=== PATIENT | female | born 1940 | race Caucasian/White ===

== ENCOUNTER 2016-03-16 07:00 | Day surgery (SDC) | payer MEDICARE ==
[~2016-03-16] VITALS: Ht 175.3 cm; Wt 66.7 kg
[~2016-03-16 07:00] MED LIST: 0.9% Sodium Chloride 1,000 ML IV SCH; ACYC400T2 PO; ASP81TEC PO; CHOL200047 PO; LEVO100T97 PO; METO25TA6 PO; METO25TA99 PO; PRE625 PO; SIMV20TA4 PO; Sodium Chloride LOK Flush 10 mL Syringe IV PRN; fentaNYL-PF 50 mCg/mL 2 mL Inj IVPUSH PRN
[2016-03-16] MEDS ORDERED: ASPI-973 PO (07:38)
[2016-03-16] MEDS ORDERED: LEVO75TA4 PO (07:38)
[2016-03-16 07:39] VITALS: BP 145/105; PULSE 106; RESP 16; O2SAT 97
[2016-03-16 08:20] VITALS: BP 110/57; PULSE 76; RESP 14; O2SAT 98
[2016-03-16 08:31] VITALS: BP 97/51; PULSE 84; RESP 12; O2SAT 98
[2016-03-16 08:34] VITALS: BP 137/74; PULSE 86; RESP 14; O2SAT 96
--- NOTE | 2016-03-16 09:26 | ENDO ---
[address] [address] ENDOSCOPY PROCEDURE PATIENT: KATERIN [place] : 1940 MR#: [id number] ADMIT: 03/16/2016 JOB ID: [id number] DATE OF SERVICE: 03/16/2016 PROCEDURE PERFORMED: Colonoscopy. INDICATIONS: Screening. ASA CLASSIFICATION: The patient's ASA classification is II. MALLAMPATI SCORE: Mallampati score was 2. MEDICATIONS: 1. Versed 6 mg. 2. Fentanyl 125 mcg. INSTRUMENT USED: PCF-H180AL. PREPARATION QUALITY: Good. PROCEDURE DETAILS: After informed consent was obtained, the patient was brought into the GI suite, where she was placed on oxygen via nasal cannula and monitored with continuous pulse oximeter, telemetry, and blood pressure monitoring. A time-out was performed. Then, she was placed in the left lateral decubitus position and medications were administered for sedation. Digital rectal exam was performed which was unremarkable. The colonoscope was then inserted into the rectum and advanced under direct visualization to the cecum, which was identified by the presence of the ileocecal valve and appendiceal orifice. Once the cecum was reached, the colonoscope was withdrawn back into the rectum, as the mucosa and lumen were examined. In the rectum, retroflexion was performed. Following retroflexion, remaining air in the rectum was suctioned, and procedure was completed. FINDINGS: 1. Normal exam from rectum to cecum. 2. Retroflexed views in the rectum revealed moderate-sized internal hemorrhoids. IMPRESSION: 1. Normal colonoscopy. 2. Internal hemorrhoids. RECOMMENDATIONS: 1. Fiber-rich diet. 2. Anusol suppositories as needed if internal hemorrhoids are symptomatic. COMPLICATIONS: None. ESTIMATED BLOOD LOSS: Zero.
== END 2016-03-16 23:59 | disposition home or self-care (01) ==
LOC: END 07:00
PROVIDERS: ATTEND Internal Medicine Gastroenterology
DX: Z12.11 Encounter for screening for malignant neoplasm of colon (principal); K64.8 Other hemorrhoids; Z85.3 Personal history of malignant neoplasm of breast; E78.5 Hyperlipidemia, unspecified; E03.9 Hypothyroidism, unspecified; I47.1 Supraventricular tachycardia; Z79.82 Long term (current) use of aspirin; Z90.13 Acquired absence of bilateral breasts and nipples
CPT/HCPCS: G0121; G0500; J2250; J7030